=== PATIENT | female | born 1990 | race Caucasian/White ===

== ENCOUNTER 2019-02-07 13:51 | Outpatient (CLI) | payer BC | END 2019-02-07 14:26 | disposition home or self-care (01) | LOC: LAB 13:51 | DX: J11.1 Influenza due to unidentified influenza virus with other respiratory manifestations (principal); R07.0 Pain in throat ==

== ENCOUNTER 2019-03-16 09:49 | Outpatient (CLI) | payer BC | END 2019-03-16 09:58 | disposition home or self-care (01) | LOC: LAB 09:49 | DX: J11.1 Influenza due to unidentified influenza virus with other respiratory manifestations (principal) ==